=== PATIENT | female | born 1970 | race Caucasian/White ===

== ENCOUNTER 2016-10-11 15:59 | Emergency (ER) | payer SELFPAY ==
[2016-10-11 16:08] VITALS: BP 140/74; BMI 24.4
--- NOTE | 2016-10-11 17:00 | DR.GENAD ---
HPI - PCP Primary Care Physician: NFD - Complaint/Symptoms Chief Complaint Doctors Comments: History as stated Chief Complaint:: PT C/O ABCESS TO TOOTH. PT STATES THIS HAS BEEN GOING ON FOR THREE DAYS AND SHE HAS BEEN ON ANTIBIOTICS (AMOXICILLIN 500MG TID) PT STATES SHE IS NOT GETTING ANY RELIEF AND TODAY HER LT EYE GOT REALLY BLURRY FOR A BRIEF MOMENT. PT ALSO STATES SHE HAS BEEN HAVING SOME BAD HEADACHES WITH IT. - Source History Provided: Patient - Mode of Arrival Mode of Arrival: Ambulatory - Timing Onset of Chief Complaint: 10/08/16 PMH - PMH Past Medical History: No Past Surgical History: Yes Surgical History: - Family History History of Family Medical Conditions: No Family Medical History: Diabetes Mellitus, Cancer, Hypertension - Social History Does patient currently use any type of tobacco product: Yes Have you used tobacco products in the last 12 months: Yes Type of Tobacco Use: Cigars Does any household member use tobacco: Yes Alcohol Use: None Do you use any recreational Drugs:: No Lives With: Family Lives Where: Home - infectious screening In the last 2 months have you had wt loss of >10#?: NO Have you had fever, night sweats or hemotysis?: No Have you traveled outside the country in the last 6 months?: No Isolation: Standard ROS - Review of Systems Eyes: No Symptoms Reported ENTM: No Symptoms Reported, Mouth Pain Respiratoy: No Symptoms Reported Cardiovascular: No Symptoms Reported Gastrointestinal/Abdominal: No Symptoms Reported Genitourinary: No Symptoms Reported Neurological: No Symptoms Reported Musculoskeletal: No Symptoms Reported Integumentary: No Symptoms Reported Hematologic/Lymphatic: No Symptoms Reported Endocrine: No Symptoms Reported Psychiatric: No Symptoms Reported All Other Systems: Reviewed and Negative PE - Vital Signs Vitals: Temperature 98.8 F Pulse Rate 75 Respiratory Rate 18 Blood Pressure 140/74 O2 Sat by Pulse Oximetry 99 - General Limitations: No Limitations General Appearance: Alert, In No Apparent Distress - Head Head Exam: Normal Inspection, Atraumatic - Eyes Eye exam: Normal Appearance, PERRL, EOMI - ENT ENT Exam: Normal Exam External Ear Exam: Normal External Inspection, Auricular Hematoma TM/Canal Exam: Bilateral Normal Nose Exam: Normal Nose Exam Mouth Exam: Other (multiple carious lesion of the left mandibular 3rd molar) Throat Exam: Normal Inspection - Neck Neck Exam: Normal Inspection, Full ROM - Chest Chest Inspection: Normal Inspection - Respiratory Respiratory Exam: Normal Lung Sounds Bilat Respiratory Exam: Bilateral Clear to Auscultation - Cardiovascular Cardiovascular Exam: Regular Rate, Normal Rhythm - Abdominal Exam Abdominal Exam: Normal Inspection, Normal Bowel Sounds Abdominal Tenderness: negative: RUQ, RLQ, LUQ, LLQ, Epigastrium, Suprapubic, Diffuse, Mild, Moderate, Severe, Other - Extremities Extremities Exam: Normal Inspection - Back Back Exam: Normal Inspection, Full ROM - Neurologic Neurological Exam: Alert, Oriented X3, CN II-XII Intact - Psychiatric Psychiatric Exam: Normal Affect - Skin Skin Exam: Warm, Dry ROR - XRAY XRAY Interpreted by: Radiologist (Lareg carious lesion of the left mandibular 3rd molar with periapical lucency and overlying cellulitis. No discrete collection to sugges abscess identified. Mild ethmoid sinusitis) - Diagnosis Discharge Problem: Dental caries, Mild ethmoid sinusitis - Discharge Plan Condition: Stable - Follow ups/Referrals Follow ups/Referrals: NFD,None [Primary Care Provider] - 3 days - Instructions
--- NOTE | 2016-10-11 17:56 | CT ---
CT sinuses without contrast Indication: Facial swelling, concern for abscess. Technique: CT images of the sinuses were obtained without contrast. Automatic exposure control was ut ilized. Comparison: None Findings: Multiple dental caries are noted, including a large lesion involving the left mandibular 3r d molar with significant periapical lucency. There is a left-sided subcutaneous fat stranding, althou gh no discrete collection can be identified. There is patchy opacification of some of the ethmoid air cells and frontal recesses, although the rem aining paranasal sinuses, mastoid air cells, and middle ears are clear. The visualized lower brain is grossly unremarkable. Impression: Large carious lesion of the left mandibular 3rd molar with periapical lucency and overlying celluliti s. No discrete collection to suggest abscess identified. Mild ethmoid sinusitis. Reported By:
[2016-10-11] MEDS ORDERED: TORADOL 60 MG VIAL IM ONE (18:25)
[2016-10-11] MEDS ORDERED: TORADOL 60 MG VIAL ONE (18:28)
== END 2016-10-11 18:37 | disposition home or self-care (01) ==
LOC: ER 16:10
DX: K02.9 Dental caries, unspecified (principal); J32.2 Chronic ethmoidal sinusitis
CPT/HCPCS: 70486; 96372; 99282; J1885